=== PATIENT | male | born 1970 | race Caucasian/White ===

== ENCOUNTER 2021-03-01 00:09 | Emergency (ER) | payer BC, SELFPAY ==
--- NOTE | ~2021-03-01 | CT_ITS ---
EXAMINATION: CTA chest PE protocol EXAM DATE: 03/01/2021 03:00 INDICATION: Left-sided chest pain, clinical concern for pulmonary embolism. TECHNIQUE: Spiral CTA of the chest (pulmonary arteries) was performed with 200 cc Omnipaque 350 intr avenous contrast injection (patient was injected twice due to poor opacification on the 1st injection ). Images were acquired during the pulmonary arterial phase. Coronal maximum intensity projection 3D-reconstructions were created by the technologist on dedicated workstation. Axial, coronal and sag ittal reformatted images were reviewed. The dose-length product (DLP) for this examination was 1027. 19 mGy-cm. The exposure was tailored according to patient size (auto mA exposure control), and iter ative reconstruction (ASIR) was used as additional dose reduction technique. Comparison is made to pr ior examination from no prior. FINDINGS: Pulmonary arteries are well opacified and without intraluminal filling defects. No thora cic aortic dissection. The lungs are clear. There are no pleural or pericardial effusions. Trach eobronchial tree is patent. There is no mediastinal, hilar or axillary lymphadenopathy. There is no pneumothorax. Heart normal in size. No evidence of coronary arterial calcification. There is hepatic steatosis and splenomegaly. There is thoracic spondylosis without osteoblastic or osteolytic lesions identified. IMPRESSION: 1. No pulmonary emboli or acute cardiopulmonary findings. 2. Hepatic steatosis and splenomegaly. Reviewed, dictated and finalized at location A.
[2021-03-01 00:18] VITALS: BP 177/97; PULSE 122; RESP 18; TEMP 35.8; O2SAT 95
--- NOTE | 2021-03-01 01:46 | ECG_ITS ---
Measurements Intervals [place] Rate: 119 P: 19 MO: 173 QRS: 28 QRSD: 105 T: 12 QT: 314 QTc: 442 Interpretive Statements SINUS TACHYCARDIA LOW QRS VOLTAGE IN PRECORDIAL LEADS ANTEROSEPTAL INFARCT, AGE INDETERMINATE BORDERLINE T WAVE ABNORMALITY- INFERIOR LEADS BASELINE ARTIFACT- I, II, III, AVR, AVL, AVF, V1-V6 ABNORMAL ECG Electronically Signed On 03-01-2021 7:02:05 CDT by Geoffrey Bassett D.O.
[2021-03-01 02:00] VITALS: BP 149/98; PULSE 119; RESP 20; RESP 21; O2SAT 96; O2SAT 97
[2021-03-01] MEDS: MORPHINE SULFATE (*CRX) 4 MG/ML INJ IV PUSH (02:16)
[2021-03-01] MEDS: KETOROLAC 30 MG/ML VIAL (*BKC) 15 MG IV PUSH (02:17)
[2021-03-01] MEDS: SODIUM CHLORIDE 0.9% IV 1,000 ML 999 ML IV CONT (02:18)
[2021-03-01 02:29] LABS: Basophils Percent Auto 0.3 % (0.2-1.2); Eosinophils Absolute Auto 0.2 K/mm3 (0-0.3); Eosinophils Percent Auto 1.6 % (0-4.4); Hematocrit 40.8 % (42.0-52.0); Hemoglobin 12.8 g/dL (14.0-18.0); Immature Granulocyte Absolute 0.12 K/mm3 (0.00-0.031); Immature Granulocyte Percent A 1.1 % (0-0.5); Lymphocytes Absolute Auto 2.03 K/mm3 (0.9-3.2); Lymphocytes Percent Auto 18.1 % (18.3-44.2); Mean Corpuscular HGB Conc 31.4 g/dl (32-36); Mean Corpuscular Volume 82.8 fl (80-100); Mean Platelet Volume 8.9 fl (7.4-10.4); Monocytes Absolute Auto 0.8 K/mm3 (0.1-0.6); Monocytes Percent Auto 7.1 % (2.6-8.5); Neutrophils Percent Auto 71.8 % (45.5-73.1); Platelet Count Result 254 k/mm3 (150-375); Red Blood Count 4.93 M/mm3 (4.6-6.20); Red Cell Distribution Width 15.7 % (11.5-14.5); White Blood Count 11.2 K/mm3 (4.5-10.0)
[2021-03-01 02:33] LABS: Alanine Aminotransferase 32 U/L (4-50); Albumin Level 4.2 g/dL (3.5-5.1); Alkaline Phosphatase 90 U/L (38-126); Anion Gap 6 mmol/L (8-16); Aspartate Amino Transferase 30 U/L (17-59); Bilirubin,Total 0.3 mg/dL (0.2-1.3); Blood Urea Nitrogen 18 mg/dL (9-20); Carbon Dioxide 31 mmol/L (22-30); Chloride 99 mmol/L (98-107); Estimated CRCL calculation 113 ml/min; Estimated Glomerular Filt Rate > 60; Glucose 167 mg/dL (75-110); Potassium 4.3 mmol/L (3.4-5.0); Sodium 136 mmol/L (137-145)
--- NOTE | 2021-03-01 02:36 | ED.GENADULT ---
HPI - General Adult General Chief complaint: Unspecified Stated complaint: Pain L rib area after coughing Time Seen by Provider: 03/01/21 01:37 History of Present Illness HPI narrative: Patient is a 50-year-old gentleman who presents to the emergency department with chief complaint of rib pain. Patient reports he was coughing and started having a sharp-like pain in his chest. Patient states that it went away and then he coughed again and then the area started hurting worse. Patient states that it is tolerable when he is not coughing but reports that gets sharp and is concerned that he may have broken a rib. Patient states that he did not have any specific trauma other than coughing. Patient reports has been treated for a sinus infection recently by his primary care physician Related Data Allergies Allergy/AdvReac Type Severity Reaction Status Date / Time No Known Allergies Allergy Mild Verified 03/01/21 00:21 Review of Systems Review of Systems: Narrative: A 10 system review of systems was completed on the patient and is negative except for what is stated in the HPI. Nursing and ancillary documentation was reviewed. [facility] Past Medical History Medical History Colon cancer screening Hyperglycemia Screening cholesterol level Screening PSA (prostate specific antigen) Social History Social History Smoking status: Never smoker Alcohol intake: current Gender identity (if verbalized by the patient): Male Sexual Orientation (if Verbalized by the Patient): Straight or Heterosexual Exam Narrative: Exam Narrative: GENERAL: Well-appearing, well-nourished, and in no acute distress. HEAD: Normocephalic, atraumatic. EYES: PERRLA and EOMI. ENT: Nares clear, no rhinorrhea or epistaxis. Mucous membranes moist. NECK: Supple. CHEST: Clear to auscultation. No respiratory distress. Chest wall is reproducibly tender to palpation HEART: Regular rate and rhythm. No murmur heard. Normal peripheral pulses. ABDOMEN: Soft, nontender, nondistended, normal active bowel sounds. EXTREMITIES: Normal range of motion. No edema. SKIN: Warm, dry, no rash. NEURO: No focal deficits. Alert and oriented x3. PSYCH: Normal mood and affect. Course Course Emergency Course: Patient's EKG shows a sinus tachycardia with a rate of [address] elevation or ST depression noted. Given the patient is significantly tachycardic the concern for possible pulmonary embolism with the pleuritic type pain was considered high probability. A PE protocol has been ordered on the patient. Vital Signs Vital signs: Vital Signs Temperature 35.8 C L 03/01/21 00:18 Pulse Rate 122 H 03/01/21 00:18 Respiratory Rate 18 03/01/21 00:18 Blood Pressure 177/97 H 03/01/21 00:18 Pulse Oximetry 95 03/01/21 00:18 Temperature 35.8 C L 03/01/21 00:18 Pulse Rate 122 H 03/01/21 00:18 Respiratory Rate 18 03/01/21 00:18 Blood Pressure 177/97 H 03/01/21 00:18 Pulse Oximetry 95 03/01/21 00:18 Medical Decision Making Vital Signs Vital Signs: Vital Signs Temperature 35.8 C L 03/01/21 00:18 Pulse Rate 122 H 03/01/21 00:18 Respiratory Rate 18 03/01/21 00:18 Blood Pressure 177/97 H 03/01/21 00:18 Pulse Oximetry 95 03/01/21 00:18 Temperature 35.8 C L 03/01/21 00:18 Pulse Rate 122 H 03/01/21 00:18 Respiratory Rate 18 03/01/21 00:18 Blood Pressure 177/97 H 03/01/21 00:18 Pulse Oximetry 95 03/01/21 00:18 Lab Data Result diagrams: 03/01/21 02:16 03/01/21 02:16 Labs: Lab Results 03/01/21 03/01/21 03/01/21 Range/Units 02:16 02:16 02:16 WBC 11.2 H (4.5-10.0) K/mm3 RBC 4.93 (4.6-6.20) M/mm3 Hgb 12.8 L (14.0-18.0) g/dL Hct 40.8 L (42.0-52.0) % MCV 82.8 (80-100) fl MCH 26.0 (26-34) pg MCHC 31.4 L (32-36) g/dl RDW 15.7 H (11.5-14.
[2021-03-01 02:53] LABS: Troponin I < 0.012 ng/mL (0.000-0.034)
[2021-03-01 03:00] VITALS: BP 134/79; PULSE 105; PULSE 97; RESP 13; O2SAT 98
[2021-03-01 04:10] VITALS: BP 135/86; PULSE 100; RESP 16; O2SAT 96
== END 2021-03-01 04:10 | disposition home or self-care (01) ==
PROVIDERS: Emergency Provider Emergency Medicine; PCP Emergency Medicine
DX: R07.89 Other chest pain (principal); R00.0 Tachycardia, unspecified; R94.31 Abnormal electrocardiogram [ECG] [EKG]
CPT/HCPCS: 36415; 71275; 80053; 84484; 85025; 93005; 96361; 96374; 96375; 99284; J1885; J2270; J7030; Q9967

== ENCOUNTER 2025-01-11 12:27 | Outpatient (CLI) | payer BC, SELFPAY ==
--- NOTE | ~2025-01-11 | XR_ITS ---
EXAM: XR_[id number]_CR, XR_[id number]_CR DATE: 01/11/2025 12:50 HISTORY: M25.561 - Pain in right knee . COMPARISON: None available. FINDINGS: Normal mineralization. No fracture or dislocation. No lytic or blastic lesion. Mild bilate ral medial joint space narrowing. Right quadriceps enthesopathy. Bilateral patellar and tibial tubero sity enthesopathy. Mild tricompartmental osteophytosis. Trace bilateral joint effusions. No erosion o r periosteal change. Bilateral varicose veins. IMPRESSION: Mild tricompartmental osteoarthritis of bilateral knees. Reviewed, dictated and finalized at location K. ENT FLOW COORDINATOR IMPRESSION: Mild tricompartmental osteoarthritis of bilateral knees.
== END 2025-01-11 12:28 | disposition home or self-care (01) ==
PROVIDERS: PCP Emergency Medicine; Visit Provider Emergency Medicine
DX: M17.0 Bilateral primary osteoarthritis of knee (principal)
CPT/HCPCS: 73560

== ENCOUNTER 2025-01-20 10:52 | Outpatient (CLI) | payer BC, SELFPAY ==
--- NOTE | ~2025-01-20 | MR_ITS ---
EXAMINATION: MR lumbar spine wo con DATE: 01/20/2025 11:34 INDICATION: Right leg pain TECHNIQUE: Magnetic resonance imaging (MRI) of the lumbar spine was performed without intravenous con trast. Sequences included sagittal T2-weighted FSE, sagittal T2-weighted FS FSE, sagittal T1-weighted FSE, and axial T2-weighted FSE. COMPARISON: None FINDINGS: Alignment is normal. Vertebral body heights are normal. Small region of increased T1 signal along the inferior endplate of L2 which could represent either a hemangioma or fibrofatty degenerative endplat e change. Disc desiccation with minimal disc height loss at L2-L3 and with mild disc height loss at L 3-L4, L4-L5 and L5-S1. The conus medullaris terminates at L1-L2. There is normal signal in the caudal spinal cord. Paravertebral soft tissues are unremarkable. The following disc levels are specifically discussed: T12-L1: The disc does not extend beyond the endplate margin. There is mild bilateral facet joint oste oarthritis. There is no neural foraminal stenosis. There is no central canal stenosis. L1-L2: Small left foraminal zone disc protrusion. There is mild bilateral facet joint osteoarthritis. There is mild left neural foraminal stenosis. There is no central canal stenosis. L2-L3: Disc is mildly bulging. There is mild bilateral facet joint osteoarthritis. There is mild bila teral neural foraminal stenosis. There is mild central canal stenosis. L3-L4: Disc is bulging. There is mild bilateral facet joint osteoarthritis. There is mild bilateral n eural foraminal stenosis. There is mild central canal stenosis. L4-L5: Disc is bulging. There is mild left and moderate right facet joint osteoarthritis. There is mi ld right and moderate left neural foraminal stenosis. There is mild central canal stenosis. L5-S1: Disc is bulging. There is mild right and mild to moderate left facet joint osteoarthritis. The re is mild bilateral neural foraminal stenosis. The thecal sac terminates at the level of the mid L5 vertebral body with fat surrounding the nerve roots at the level of the L5-S1 disc space where there is no central canal stenosis. IMPRESSION: 1. Mild lumbar spondylosis. Reviewed, dictated and finalized at location L. SPECIALIST IMPRESSION: 1. Mild lumbar spondylosis.
== END 2025-01-20 10:53 | disposition home or self-care (01) ==
LOC: GOSHIMG 10:53
PROVIDERS: PCP Emergency Medicine; Visit Provider Emergency Medicine
DX: M79.604 Pain in right leg (principal); M79.605 Pain in left leg; M54.50 Low back pain, unspecified
CPT/HCPCS: 72148

== ENCOUNTER 2025-03-09 14:24 | Outpatient (CLI) | payer BC, SELFPAY ==
--- NOTE | ~2025-03-09 | US_ITS ---
EXAMINATION: US venous doppler LE RT DATE: 03/09/2025 15:32 INDICATION: Right lower extremity pain. TECHNIQUE: Grayscale ultrasound images without and with compression and Doppler ultrasound images of the right lower extremity veins were obtained. Examination is limited by poor acoustic penetration. COMPARISON: None. FINDINGS: The visualized portions of right common femoral vein, profunda (deep) femoral vein, femoral vein, pop liteal vein, peroneal veins, posterior tibial veins, and greater saphenous vein outflow are patent. IMPRESSION: 1. No deep venous thrombosis. Reviewed, dictated and finalized at location A.
--- OUTSIDE RECORDS SUMMARY | 2025-03-09 16:26 | XMS_ITS | Clinical Summary ---
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 Name Role Phone Unavailable Primary Care Provider Unavailabl e Immunizations Immunization Administration Dates Next Due Covid-19, Mrna, Lnp-s, Pf, 30 Mcg/0.3 Ml Dose (P fizer) 09/21/2021 Social History Tobacco Use Types Packs/Day Years Used Date Smoking Tobacco: Never Assessed Sex and Gender Information Value Date Recorded Sex Assigned at Not on file Legal Sex Male 2:08 PM CDT Gender Identity Not on file Sexual Orientation Not on file Plan of Treatment Health Maintenance Due Date Last Done Comments Hepatitis C Virus (HCV) Screening 1970 TdaP Immunization 1970 Hepatitis B Immunization (1 of 3 - 19+ 3-dose series) 1989 Colonoscopy 2015 Colorectal Cancer Screening 2015 Cologuard 2020 Immunochemical Fecal Occult Blood 2020 Pneumococcal Immunization (5 0+ years) (1 of 1 - PCV) 2020 Zoster Immunization (1 of 2) 2020 Influenza Immunization (#1) 2024 SARS-COV-2 Immunization (3 - 2023-25 season) 2024 09/21/2021, 11/23/2020 Respiratory Syncytial Virus (RSV) Immunization (Adult) (1 - 1-dose 75+ series) 2045 Meningococcal Immunization (ACWY) Aged Out No longer eligible b ased on patient's age to complete this topic Pneumococcal Immunization Combined Aged Out No longer eligible b ased on patient's age to complete this topic Rotavirus Immunization Aged Out No lo nger eligible based on patient's age to complete this topic
== END 2025-03-09 14:25 | disposition home or self-care (01) ==
PROVIDERS: PCP Emergency Medicine; Visit Provider Emergency Medicine
DX: M25.561 Pain in right knee (principal)
CPT/HCPCS: 93971